=== PATIENT | female | born 1985 | race Caucasian/White ===

== ENCOUNTER 2017-08-08 12:00 | Emergency (ER) | payer MEDICAID ==
[~2017-08-08] VITALS: Ht 152.4 cm; Wt 59.6 kg
[~2017-08-08 12:00] MED LIST: FERR-55
[2017-08-08 12:02] VITALS: Ht 152.4 cm; Wt 59.6 kg
--- NOTE | 2017-08-08 13:00 | ERD ---
ER Documentation Chief Complaint Chief Complaint vag bleed onset yesterday , 6 weeks preg HPI 32-year-old female who is A1 states that her last menstrual period was on June 20 comes in approximately 6 weeks with vaginal bleeding and pelvic cramping. Patient states that it began on Monday night which was 2 days ago with vaginal spotting that was light pink in and now she notes more spotting , with cramping. She was at [facility] emergency department yesterday at approximately 8 AM and has all of her results and copies with her. A ultrasound was done, that showed a single live intrauterine at approximately 6 weeks, no subchorionic hemorrhage, with positive heart tones. The beta quantitative was 2991 at the time. Her ABO Rh is O+. Patient denies any fevers or chills, dizziness, chest pain, shortness breath. ROS All systems reviewed and are negative except as per history of present illness. Medications Home Meds Reported Medications Ferrous Sulfate* (Ferrous Sulfate*) 325 Mg Tablet 06/22/10 Allergies Allergies: Coded Allergies: Latex (Verified Allergy, Unknown, 06/22/10) PMhx/Soc Medical and Surgical Hx: pt denies Medical Hx, pt denies Surgical Hx History of Surgery: No Anesthesia Reaction: No Hx Neurological Disorder: No Hx Respiratory Disorders: No Hx Cardiac Disorders: No Hx Psychiatric Problems: No Hx Miscellaneous Medical Probl: No Hx Alcohol Use: No Hx Substance Use: No Hx Tobacco Use: No Physical Exam Vitals Vital Signs Date Time Temp Pulse Resp B/P Pulse Ox O2 Delivery O2 Flow Rate FiO2 08/08/17 12:02 99.6 83 16 113/64 100 Physical Exam General: Well-developed, well-nourished. The patient appears in no acute distress. HEENT: Head is normocephalic, atraumatic. No scleral icterus. Neck: Supple. Nontender. Lungs: Clear to auscultation. Normal air movement. Heart: Regular rate and rhythm. S1 and S2 are normal. No murmurs, gallops, or rubs. Abdomen: Soft, nontender, nondistended. Bowel sounds are normoactive. Extremities: No clubbing or cyanosis. Normal pulses. Moving extremities x 4. No weakness. Neurologic: Alert and oriented 3. No focal deficits. Skin: Normal turgor. No rash or lesions. Result Diagram: 08/08/17 1310 Results 24 hrs Laboratory Tests Test 08/08/17 13:10 White Blood Count 7.110^3/ul Red Blood Count 4.7910^6/ul Hemoglobin 9.5g/dl Hematocrit 33.7% Mean Corpuscular Volume 70.4fl Mean Corpuscular Hemoglobin 19.8pg Mean Corpuscular Hemoglobin Concent 28.2g/dl Red Cell Distribution Width 27.9% Platelet Count 09864^3/UL Mean Platelet Volume fl Neutrophils % 67.4% Lymphocytes % 22.5% Monocytes % 8.7% Eosinophils % 0.8% Basophils % 0.3% Nucleated Red Blood Cells % 0.0/100WBC Neutrophils # 4.810^3/ul Lymphocytes # 1.610^3/ul Monocytes # 0.610^3/ul Eosinophils # 0.110^3/ul Basophils # 0.010^3/ul Nucleated Red Blood Cells # 0.010^3/ul Urine Color YELLOW Urine Clarity CLEAR Urine pH 6.0 Urine Specific [place] 1.017 Urine Ketones NEGATIVEmg/dL Urine Nitrite NEGATIVEmg/dL Urine Bilirubin NEGATIVEmg/dL Urine Urobilinogen NEGATIVEmg/dL Urine Leukocyte Esterase NEGATIVELeu/ul Urine Microscopic RBC 73/HPF Urine Microscopic WBC 8/HPF Urine Squamous Epithelial Cells FEW/HPF Urine Mucus FEW/HPF Urine Hemoglobin 3+mg/dL Urine Glucose NEGATIVEmg/dL Urine Total Protein NEGATIVEmg/dl Beta HCG, Quantitative 4126.1mIU/ml Procedures/MDM ED COURSE: Labs, urine, pelvic ultrasound were obtained. Pelvic ultrasound, the patient refused a transvaginal ultrasound, transabdominal shows a single live intrauterine at 5 weeks and 6 days , with a gestational sac and pole and yolk sac. No adnexal masses seen. MEDICAL DECISION MAKIN-year-old female, had a workup at a nearby hospital, showing single live intrauterine of 6 weeks comes in with vaginal bleeding and cramping, has a single live intrauterine seen on ultrasound today as well. Differentials include threatened , missed , ectopic , infection, PID, cervicitis. Intrauterine gestational sac as well as pole and yolk sac are all physical today with positive heart tones. Patient's type and Rh is O+, there is no indication for RhoGam. She is hemodynamically stable however does have anemia, advised to continue the ferrous sulfate was prescribed to her yesterday. Recheck with her OB in 3-4 days and return for any worsening symptoms. Departure Diagnosis: Primary Impression: Vaginal bleeding in patient at less than 20 weeks gestation Condition: DARLIN Hansen PA-C Aug 08, 2017 13:00
[2017-08-08 13:18] LABS: ABNORMAL IP MESSAGE 1; BASOPHILS % 0.3 % (0.0-2.0); EOSINOPHILS # 0.1 10^3/ul (0.0-0.5); EOSINOPHILS % 0.8 % (0.0-7.0); HEMATOCRIT 33.7 % (37.0-47.0); HEMOGLOBIN 9.5 g/dl (12.0-16.0); LYMPHOCYTES # 1.6 10^3/ul (0.8-2.9); LYMPHOCYTES % 22.5 % (15.0-51.0); MEAN CORPUSCULAR HEMOGLOBIN 19.8 pg (29.0-33.0); MEAN CORPUSCULAR HGB CONC 28.2 g/dl (32.0-37.0); MEAN CORPUSCULAR VOLUME 70.4 fl (82.0-101.0); MONOCYTE # 0.6 10^3/ul (0.3-0.9); MONOCYTES % 8.7 % (0.0-11.0); NEUTROPHIL # 4.8 10^3/ul (1.6-7.5); NEUTROPHILS % 67.4 % (39.0-77.0); PLATELET COUNT 210 10^3/UL (140-415); RED BLOOD COUNT 4.79 10^6/ul (4.20-5.40); RED CELL DISTRIBUTION WIDTH 27.9 % (11.5-14.5); WHITE BLOOD COUNT 7.1 10^3/ul (4.8-10.8)
[2017-08-08 13:22] LABS: POSITIVE DIFF @See below
[2017-08-08 13:23] LABS: ADD UMIC YES; UR ASCORBIC ACID 20 mg/dL (NEGATIVE); UR BILIRUBIN (Dip) NEGATIVE (NEGATIVE); UR BLOOD (Dip) 3+ mg/dL (NEGATIVE); UR CLARITY CLEAR (CLEAR); UR COLOR YELLOW (YELLOW); UR GLUCOSE (Dip) NEGATIVE (NEGATIVE); UR KETONES (Dip) NEGATIVE (NEGATIVE); UR LEUKOCYTE ESTERASE (Dip) NEGATIVE Leu/ul (NEGATIVE); UR MUCUS FEW /HPF (NONE SEEN); UR NITRITE (Dip) NEGATIVE (NEGATIVE); UR RBC 73 /HPF (0-5); UR SPECIFIC GRAVITY (Dip) 1.017 (1.003-1.030); UR SQUAMOUS EPITHELIAL CELL FEW /HPF (FEW); UR TOTAL PROTEIN (Dip) NEGATIVE (NEGATIVE); UR UROBILINOGEN (Dip) NEGATIVE (NEGATIVE)
--- NOTE | 2017-08-08 15:31 | RADRPT ---
PROCEDURE: US Obstetric less than 14 weeks. CLINICAL INDICATION: , vaginal bleeding TECHNIQUE: Transabdominal imaging of the pelvis was performed. Images are reviewed on a high-reso [employer] PACS workstation. COMPARISON: None available FINDINGS: Single intrauterine gestation is identified. heart rate is 118 bpm. P[place]ia [place]-rump length = 0.56 cm. Gestational age is 5 weeks 6 days and JAZZMINE is 04/04/2016 by ultrasound criteria. Bilateral ovaries are unremarkable. No ovarian torsion, adnexal mass or pelvic free fluid is seen. IMPRESSION: 1. Single live intrauterine with an estimated gestational age of 5 weeks 6 days by ultras ound criteria, as above. RPTAT: AAQQ .Juventino Pack MD, MD Date Time Electronically viewed and signed by .Juventino Pack MD, on 08/08/2017 15:31 .R/
== END 2017-08-08 16:04 | disposition home or self-care (01) ==
LOC: FTE 12:00
DX: O20.9 Hemorrhage in early pregnancy, unspecified (principal); R10.2 Pelvic and perineal pain; Z3A.01 Less than 8 weeks gestation of pregnancy
CPT/HCPCS: 36415; 76801; 81001; 84702; 85025; 86900; 86901; Z7502

== ENCOUNTER 2019-01-01 20:23 | Emergency (ER) | payer MEDICAID, OTHER ==
[~2019-01-01] VITALS: Ht 152.4 cm; Wt 67.3 kg
[2019-01-01 21:22] VITALS: Ht 152.4 cm; Wt 67.3 kg
[2019-01-02] MEDS ORDERED: ACET500C5 PO (01:52)
[2019-01-02] MEDS ORDERED: ACETAMINOPHEN 500 MG TAB PO STA (01:53)
[2019-01-02 02:10] VITALS: BP 118/61; PULSE 72; RESP 18
--- NOTE | 2019-01-02 02:13 | ERD ---
ER Documentation Chief Complaint Chief Complaint C/O YAS BREAST PAIN, SWELLING AND REDNESS SINCE YESTERDAY HPI This is a post female presents to the ED complaining of bilateral breast engorgement and pain since yesterday. Patient states she has a history of this with her previous 2 pregnancies as well. She states this was last treated with "cold cabbages" and compresses. She has not been breast-feeding and has not tried manually expressing her breast milk. Has not been taking any medications. She denies any fevers, chills or myalgias. No other complaints. ROS All systems reviewed and are negative except as per history of present illness. Medications Home Meds Active Scripts Acetaminophen* (Tylophen*) 500 Mg Capsule, 1 CAP PO Q6H PRN for PAIN AND OR ELEVATED TEMP, #20 CAP Prov:JOSE C OG PA-C 01/02/19 Reported Medications Ferrous Sulfate* (Ferrous Sulfate*) 325 Mg Tablet 06/22/10 Allergies Allergies: Coded Allergies: Latex (Verified Allergy, Unknown, 06/22/10) PMhx/Soc History of Surgery: No Anesthesia Reaction: No Hx Neurological Disorder: No Hx Respiratory Disorders: No Hx Cardiac Disorders: No Hx Psychiatric Problems: No Hx Miscellaneous Medical Probl: Yes (Anemia) Hx Alcohol Use: No Hx Substance Use: No Hx Tobacco Use: No Smoking Status: Never smoker Physical Exam Vitals Vital Signs Date Temp Pulse Resp B/P (MAP) Pulse Ox O2 O2 Flow FiO2 Time Delivery Rate 01/02/19 98.8 72 18 118/61 99 Room Air 02:10 (80) 01/01/19 98.9 88 18 121/58 98 21:22 (79) Physical Exam Const: No acute distress Head: Atraumatic Eyes: Normal Conjunctiva ENT: Normal External Ears, Nose and Mouth Neck: Full range of motion. No meningismus. Abd: Soft, non tender, non distended. Normal bowel sounds. + Old midline abdominal scar Skin: + Bilateral breast engorgement, right greater than left, with mild pain palpation. Right axillary LAD, likely reactive. White dots at end of bilateral nipples. Mild erythema to right breast, no warmth, no surrounding induration or fluctuance. Ext: No cyanosis, or edema Neur: Awake and alert Psych: Normal Mood and Affect Results 24 hrs Current Medications Medications Dose Sig/[place] Start Time Status Last (Trade) Ordered Route PRN Stop Time Admin Dose Reason Admin 500 mg ONCE STAT 01/02/19 DC 01/02/19 Acetaminophen PO 01:53 02:04 (Tylenol 01/02/19 01:54 Tab) Procedures/MDM This is a 33-year-old G3, P3 female presents to the ED complaining of bilateral breast engorgement and pain. There is no evidence of mastitis or abscess on physical exam. I do not think she needs antibiotics at this time. She is afebrile here vital signs are normal. Patient had spontaneous milk discharge after my examination. Recommended applying warm compresses, and expression/suckling to help facilitate drainage at home. She was given Tylenol here for comfort, given Rx for same. I counseled her not to stop breast-feeding as this could lead to worsening engorgement and pain. Patient understands. I recommended follow-up with her [facility] in 2 days, otherwise return here for any new or worsening symptoms. Departure Diagnosis: Primary Impression: Breast engorgement, Condition: Stable Patient Instructions: Expressing Breastmilk Additional Instructions: I recommend warm compresses to the area at least for 10 minutes 4 times a day. Avoid tight fitting clothing. Continue attempting to pump your breasts without their breast pump machine or with your hands to help facilitate drainage. He should continue breast-feeding as I do not think there are any signs of infection at this time. You can take the Tylenol for any discomfort or pain. If your symptoms do not improve after 48 hours, follow-up with your [facility]. Return here if you do worsen symptoms. JOSE C OG PA-C January 02, 2019 02:13
== END 2019-01-02 02:10 | disposition home or self-care (01) ==
LOC: FTE 20:23
DX: O92.79 Other disorders of lactation (principal)
CPT/HCPCS: Z7502; Z7610; 99283